=== PATIENT | female | born 1995 | race African-American/Black ===

== ENCOUNTER 2018-01-10 23:11 | Emergency (ER) | payer OTHER, SELFPAY ==
[2018-01-10] MEDS ORDERED: Acetaminophen 500 MG TAB ONE (23:22)
[2018-01-10 23:51] LABS: BHCG - Serum Negative (NEGATIVE); Pregs Control Background? CLEAR/WHITE (CLR/WHITE); Pregs Control Bar Appear? YES (CONTROL BAR)
[2018-01-11 00:12] LABS: Hemoglobin 10.6 g/dL (12.0-16.0); Mean Corpuscular HGB CONC 33.5 g/dL (32.0-36.0); Mean Corpuscular Hemoglobin 29.9 pg (27.0-31.0); Mean Corpuscular Volume 89.3 fL (78.0-98.0); Mean Platelet Volume 8.1 fL (7.4-10.4); Platelet Count 176 thou/uL (130-400); RBC Distribution Width 14.2 % (11.5-14.5); Red Blood Cell (RBC) Count 3.52 mill/uL (4.20-5.40); White Blood Cell (WBC) Count 6.6 thou/uL (4.8-10.8)
[2018-01-11 00:13] LABS: ALT (SGPT) 10 U/L (8-55); AST (SGOT) 14 U/L (5-34); Albumin 4.3 g/dL (3.5-5.0); Alkaline Phosphatase 71 U/L (40-150); Anion Gap 11 mmol/L (10-20); BUN (Urea Nitrogen) 6 mg/dL (7.0-18.7); Bilirubin, Total 0.2 mg/dL (0.2-1.2); Calc. Creatinine Clearance 0 mL/min (70-130); Calcium 9.5 mg/dL (7.8-10.44); Carbon Dioxide 24 mmol/L (22-29); Chloride 104 mmol/L (98-107); Estimated GFR-MDRD Greater than 90; Globulin 5.5 g/dL (2.4-3.5); Glucose 105 mg/dL (70-105); Potassium 3.4 mmol/L (3.5-5.1); Protein, Total 9.8 g/dL (6.0-8.3); Sodium 136 mmol/L (136-145)
[2018-01-11 00:33] LABS: Band 9 % (5-11); Eosinophils 1 % (0-10); Lymphocytes 19 % (21-51); MDiff Complete? YES; Monocytes 10 % (0-10); Neutrophil 61 % (42-75)
[2018-01-11 01:06] LABS: Bilirubin Negative (Negative); Blood, Urine Small (Negative); Clarity CLOUDY (Clear); Glucose, Urine (Dipstick) Negative (Negative); Leukocyte Large (Negative); Nitrite Negative (Negative); Protein, Urine (Dipstick) 30 mg/dL (Neg-Trace); Urobilinogen 0.2 mg/dL (0.2-1.0); pH, Urine 7.5 (5.0-9.0)
[2018-01-11] MEDS ORDERED: cefTRIAXone\\ROCEPHIN 1 GM VIAL ONE (01:06)
[2018-01-11 01:09] LABS: Bacteria/HPF 3+ HPF (None Seen); Hyaline Casts/LPF 0-3 HYALINE CAST LPF (0-3 Hyaline); Pathc Cast-AUWi Flag 0.14 (0-2.49); RBC/HPF 21-50 HPF (0-3); Squamous Epithelial 0-3 HPF (0-3)
--- NOTE | 2018-01-11 08:24 | RAD ---
SINGLE VIEW OF THE CHEST: COMPARISON: None. HISTORY: Abdominal pain for 2 days and hematuria; chest pain. FINDINGS: Single view of the chest shows a normal sized cardiomediastinal silhouette. There is no evidence of c onsolidation, mass, or pleural effusion. The bones are unremarkable. IMPRESSION: No evidence of acute cardiopulmonary disease. POS: [facility]
--- NOTE | 2018-01-11 08:33 | CT ---
PRELIMINARY REPORT/[facility]/EMERGENTY AFTER-HOURS PROCEDURE CT Abdomen and Pelvis Without Intravenous Contrast CLINICAL HISTORY: 22 years old, female; Pain; Abdominal pain; Flank; Right; Patient HX: Right sided flank/abdominal sari n, blood in urine, fever, chills, no n/v. TECHNIQUE: Axial computed tomography images of the abdomen and pelvis without intravenous contrast. Coronal reformatted images were created and reviewed. COMPARISON: No relevant prior studies available. FINDINGS: Lung bases: Normal. No mass. No consolidation. ABDOMEN: Liver: Normal. Gallbladder and bile ducts: Normal. Pancreas: Normal. Spleen: Normal. Adrenals: Normal. Kidneys and ureters: Mild right hydronephrosis, without definite obstructive etiology identified. Stomach and bowel: Normal. PELVIS: Appendix: Appendix is normal. Bladder: Normal. Reproductive: Normal as visualized. ABDOMEN and PELVIS: Intraperitoneal space: Small amount of pelvic free fluid, likely physiologic. No free air. Bones/joints: Minimal levoscoliosis of the lumbar spine. No acute fracture. No dislocation. Soft tissues: Normal. Vasculature: Normal. No abdominal aortic aneurysm. Lymph nodes: Normal. IMPRESSION: 1. Mild right hydronephrosis, without definite obstructive etiology identified. Findings may be secon nazia to recently passed calculus or occult obstruction. 2. Incidental/non-acute findings are described above. Thank you for allowing us to participate in the care of your patient. Dictated and Authenticated by: Jack Berrios MD 01/11/2018 12:37 AM Central Time ([place] & [place]) FINAL REPORT EMERGENT AFTER HOURS CT RENAL STONE PROTOCOL CT ABDOMEN AND PELVIS WITHOUT CONTRAST: IMPRESSION: Agree with the preliminary interpretation given by [facility] that there is no evidence for urinary tract ca lculi. Minimal nonspecific prominence of the right renal collecting system is likely physiologic. B ilateral L5 pars defects are demonstrated with associated spondylolisthesis. Correlation with radiog raphs recommended. POS: [facility]
== END 2018-01-11 02:50 | disposition home or self-care (01) ==
LOC: ERS 23:11
DX: N12 Tubulo-interstitial nephritis, not specified as acute or chronic (principal)
CPT/HCPCS: 36415; 71045; 74176; 80053; 81003; 81015; 83605; 83690; 84703; 85025; 87040; 87077; 87086; 87186; 96361; 96365; 96368; J0696; J1956

== ENCOUNTER 2018-05-10 21:33 | Emergency (ER) | payer SELFPAY ==
[2018-05-10 23:12] LABS: #Eosinphils 0.1 thou/uL (0.0-0.7); #Monocytes 0.3 thou/uL (0.11-0.59); #Neutrophils 2.1 thou/uL (1.40-6.50); %Eosinophils 2.3 % (0.0-10.0); %Lymphocytes 28.4 % (21.0-51.0); %Monocytes 7.9 % (0.0-10.0); %Neutrophils 60.5 % (42.0-75.0); Hemoglobin 9.4 g/dL (12.0-16.0); Mean Corpuscular HGB CONC 31.5 g/dL (32.0-36.0); Mean Corpuscular Hemoglobin 27.2 pg (27.0-31.0); Mean Corpuscular Volume 86.3 fL (78.0-98.0); Mean Platelet Volume 9.2 fL (7.4-10.4); Platelet Count 171 thou/uL (130-400); Red Blood Cell (RBC) Count 3.46 mill/uL (4.20-5.40); White Blood Cell (WBC) Count 3.4 thou/uL (4.8-10.8)
[2018-05-10 23:17] LABS: BHCG - Serum Negative (NEGATIVE); Pregs Control Background? CLEAR/WHITE (CLR/WHITE); Pregs Control Bar Appear? YES (CONTROL BAR)
[2018-05-10 23:25] LABS: ALT (SGPT) 11 U/L (8-55); AST (SGOT) 19 U/L (5-34); Albumin 3.3 g/dL (3.5-5.0); Alkaline Phosphatase 62 U/L (40-150); Anion Gap 6 mmol/L (10-20); BUN (Urea Nitrogen) 9 mg/dL (7.0-18.7); Bilirubin, Total 0.2 mg/dL (0.2-1.2); Calc. Creatinine Clearance 0 mL/min (70-130); Calcium 8.4 mg/dL (7.8-10.44); Carbon Dioxide 28 mmol/L (22-29); Chloride 107 mmol/L (98-107); Estimated GFR-MDRD Greater than 90; Globulin 5.2 g/dL (2.4-3.5); Glucose 125 mg/dL (70-105); Protein, Total 8.5 g/dL (6.0-8.3); Sodium 138 mmol/L (136-145)
[2018-05-10] MEDS ORDERED: Potassium Bicarbonate/Cit Ac 25 MEQ TAB ONE (23:45)
[2018-05-11 00:28] LABS: Bilirubin Negative (Negative); Blood, Urine Negative (Negative); Clarity CLOUDY (Clear); Glucose, Urine (Dipstick) Negative (Negative); Leukocyte Negative (Negative); Nitrite Negative (Negative); Protein, Urine (Dipstick) 300 mg/dL (Neg-Trace); Specific Gravity, Urine 1.027 (1.002-1.036); pH, Urine 6.5 (5.0-9.0)
[2018-05-11 00:31] LABS: Bacteria/HPF Rare-Few HPF (None Seen); RBC/HPF 0-3 HPF (0-3); Squamous Epithelial 21-50 HPF (0-3)
[2018-05-11 00:35] LABS: Pathc Cast-AUWi Flag 2.61 (0-2.49)
[2018-05-11 00:50] LABS: Hyaline Casts/LPF 0-3 HYALINE CAST LPF (0-3 Hyaline); Other Casts/LPF None Seen LPF (0-3 Hyaline); Renal Epithelial None Seen HPF (0-3); Transitional Epithelial NONE SEEN HPF (0-3); Yeast-All Forms None Seen HPF (None Seen)
== END 2018-05-11 01:35 | disposition home or self-care (01) ==
LOC: ERS 21:33
DX: E87.6 Hypokalemia (principal); R42 Dizziness and giddiness
CPT/HCPCS: 36415; 80053; 81003; 81015; 84703; 85025; 93005

== ENCOUNTER 2018-06-27 13:33 | Inpatient (IN) | payer SELFPAY ==
[2018-06-27 16:04] VITALS: BMI 26.2
[2018-06-27] MEDS ORDERED: Acetaminophen 650 MG Suppository PR PRN (16:31)
[2018-06-27] MEDS ORDERED: Guaifenesin DM 100-10/5 ML UDCUP PO PRN (16:31)
[2018-06-27] MEDS ORDERED: Senokot S 8.6-50 MG TAB PO PRN (16:31)
[2018-06-27] MEDS ORDERED: Ondansetron PF 4 MG/2 ML Vial IVP PRN (16:31)
[2018-06-27] MEDS ORDERED: Ondansetron ODT 4 MG TAB PO PRN (16:31)
[2018-06-27 17:44] LABS: Iron 24 ug/dL (50-170); Iron Binding Capacity, Total 158 mcg/dL (265-497)
[2018-06-27 17:45] LABS: ALT (SGPT) Less than 7 U/L (8-55); AST (SGOT) 18 U/L (5-34); Albumin 2.1 g/dL (3.5-5.0); Alkaline Phosphatase 57 U/L (40-150); Anion Gap 8 mmol/L (10-20); BUN (Urea Nitrogen) 13 mg/dL (7.0-18.7); Bilirubin, Total Less than 0.2 mg/dL (0.2-1.2); Calc. Creatinine Clearance 74 mL/min (70-130); Calcium 7.5 mg/dL (7.8-10.44); Carbon Dioxide 20 mmol/L (22-29); Chloride 112 mmol/L (98-107); Estimated GFR-MDRD 71; Globulin 5.2 g/dL (2.4-3.5); Glucose 75 mg/dL (70-105); Iron 23 ug/dL (50-170); Iron Binding Capacity, Total 168 mcg/dL (265-497); Potassium 3.7 mmol/L (3.5-5.1); Protein, Total 7.3 g/dL (6.0-8.3); Sodium 136 mmol/L (136-145)
[2018-06-27 18:53] LABS: Bilirubin Negative (Negative); Blood, Urine Large (Negative); Clarity CLEAR (Clear); Glucose, Urine (Dipstick) Negative (Negative); Leukocyte Negative (Negative); Nitrite Negative (Negative); Protein, Urine (Dipstick) 300 mg/dL (Neg-Trace); Urobilinogen 0.2 mg/dL (0.2-1.0)
[2018-06-27 19:00] LABS: Bacteria/HPF Rare-Few HPF (None Seen); Hyaline Casts/LPF 0-3 HYALINE CAST LPF (0-3 Hyaline); Pathc Cast-AUWi Flag 0.29 (0-2.49); RBC/HPF 21-50 HPF (0-3)
[2018-06-27 19:05] LABS: Specific Gravity, Urine 1.046 (1.002-1.036)
[2018-06-27] MEDS: Famotidine 20 MG TAB PO SCH (20:40)
--- NOTE | 2018-06-27 20:51 | HP ---
PRIMARY CARE PHYSICIAN: Curt Armstrong DO, MS CHIEF COMPLAINT: Fevers and facial swelling. HISTORY OF PRESENT ILLNESS: This is a 22-year-old female whose only past medical history is delivery of her only in 2017, who was in her normal state of health until a little over a month ago. At that time, she developed sore throat, fevers, aching all over. She was seen in one of the freestanding emergency rooms. There, she had a flu swab that was positive for the flu and also a strep swab that was positive for strep. She is allergic to amoxicillin, so she was given a Z-Agus along with Tamiflu. The patient reports the sore throat went away , however, other symptoms did not completely resolve. She has had fevers intermittently ever since up to 101 in the last couple of days. She has had fatigue, some intermittent aching in her joints. She also has had some shortness of breath when she lies down flat or with exertion, and she has been having to use two or three pillows at night to keep herself propped up so she can breathe. She has also noticed some swelling of her face and a little bit of swelling of her feet at one point, but those resolved, and she has had intermittent nausea and vomiting though it is not a consistent symptom. The patient went into [facility] Room. There, she was noted to have cardiomegaly and some pleural effusions on her chest x-ray. She also had an elevated D-dimer, so CT angio was done. CT angio showed cardiomegaly, small pericardial effusion, mild anasarca, and small bilateral pleural effusions. There was also some bilateral ground- glass appearance consistent with some mild edema and some bilateral axillary adenopathy. The patient also was noted to have a lot of protein in her urine and creatinine is mildly elevated at 1.4. Urine microscopy was not done. Her white blood cell count was suppressed to 3.5 and her hemoglobin was low at 9.1, hematocrit of 28.3, normal platelets. She had negative troponins at that time as well. The patient had tachycardia in the emergency room. She was given a couple of liters of fluid and then transferred here. Here, she has remained with some mild tachycardia in the low 100s and she has been afebrile here as well. PAST MEDICAL HISTORY: None. PAST SURGICAL HISTORY: None. OBSTETRICAL HISTORY: G1, P1, with spontaneous vaginal delivery at term and with negative hepatitis and HIV testing at that time. She did have some recurrent Trichomonas during the . SOCIAL HISTORY: The patient denies tobacco, alcohol, or illicit drug use. No recent travel. No history of camping. No tick bites. FAMILY HISTORY: Father has had end-stage renal disease, on dialysis for the last 20 years. Also has a history of hypertension, but no history of autoimmune diseases or diabetes. Maternal grandmother and grandfather, both had diabetes. ALLERGIES: AMOXICILLIN. CURRENT MEDICATIONS: Intermittent Tylenol and then the Z-Agus and Tamiflu last month. REVIEW OF SYSTEMS: CONSTITUTIONAL: See HPI. EYES: No double vision or blurred vision. ENT: No current congestion, drainage, or sore throat. CARDIOVASCULAR: No chest pain. No palpitations or racing heart. She does have orthopnea and dyspnea on exertion. PULMONARY: She has rare cough. She did not have much cough with her previous sore throat and infections either and no shortness of breath at rest, no wheezing. No chest tightness. GASTROINTESTINAL: Intermittent nausea and vomiting and she has some abdominal pain with vomiting, but otherwise it is not hurting at other times. No diarrhea or constipation. GENITOURINARY: No dysuria or hematuria. She has not noticed any darkening of her urine or any foamy urine. MUSCULOSKELETAL: No specific areas of arthralgias. She does have some generalized aching that comes and goes. SKIN: No rashes or other lesions that she has noticed. NEUROLOGIC: No numbness, tingling, or focal weakness. PHYSICAL EXAMINATION: VITAL SIGNS: Blood pressure 148/97, pulse 110, temperature 97.7, respirations 16, O2 saturation 100% on room air. GENERAL: This is a well-developed, well-nourished female, in no acute distress. HEENT: Pupils are equal, round, and reactive to light. Oropharynx is clear without lesions, erythema, or exudate. NECK: Supple. No lymphadenopathy. No thyroid nodules or enlargement. No JVD. HEART: Regular rhythm. Mild tachycardia. No murmurs. LUNGS: The patient has some mild crackles in bilateral bases, otherwise good air movement. No increased work of breathing. ABDOMEN: Soft, nontender to palpation. Normoactive bowel sounds. No hepatosplenomegaly or other masses. EXTREMITIES: No clubbing, cyanosis, or edema. Good peripheral pulses. SKIN: No rashes or other lesions noted. No sandpaper rash. No rash to her face or cheeks. NEUROLOGIC: Intact strength and sensation in all extremities. No facial droop. PSYCHIATRIC: Alert and oriented x3. Normal mood and affect. LABORATORY DATA: See HPI. IMAGING: EKG done at the outside emergency room was not sent over, but the report in their summary mentions normal sinus rhythm, normal HI intervals, normal ST segments and T-waves. No significant abnormalities except for the sinus tachycardia. ASSESSMENT: 1. Dyspnea on exertion with pleural effusions, pericardial effusion, and cardiomegaly. This is concerning for most likely a rheumatologic source. Given her other symptoms, I think lupus is high in the differential, and we are sending the antinuclear antibodies at this time. I am going to get an echocardiogram and have Cardiology see the patient as well. We will check a brain natriuretic peptide at this time also. 2. Acute renal failure, mild, associated with severe proteinuria and blood on the dipstick done at the outside emergency room. No microscopy was done. We will do a urine with microscopy here to look for red cells or red cell casts. We will also check a 24-hour urine protein. We will have Nephrology see the patient. She may eventually need a biopsy as this is very likely lupus affecting both the heart and the kidneys. Some sort of poststreptococcal glomerulonephritis is also on the differential. We will go ahead and re-swab her throat as well now to see if the strep was cleared with the azithromycin. If it is still present, she may benefit from a course of erythromycin. 3. Tachycardia, likely secondary to #1. 4. Hypertension, mild. We will monitor. 5. Leukopenia with anemia as well. Again, points to a likely diagnosis of lupus. We will go ahead and get iron studies to see if she is iron deficient and needs supplementation. 6. Gastrointestinal prophylaxis. We will put the patient on Pepcid while in the hospital. 7. Deep venous thrombosis prophylaxis. Given proteinuria and her anasarca on the CT, it is possible that she has had a drop in her protein levels, enough to call as a hypercoagulable state. We will go ahead and put her on Lovenox while in the hospital even though she is pretty ambulatory. We will try and have her ambulate regularly to prevent deep venous thrombosis. 8. Code status. The patient is full code. Job ID: [id number] MTDD
--- NOTE | 2018-06-28 00:04 | CON ---
DATE OF CONSULTATION: REASON FOR CONSULTATION: Elevated creatinine and proteinuria. HISTORY OF PRESENT ILLNESS: This is a very pleasant 22-year-old female with a baseline creatinine of 0.6 in April which increased to 1.1. The patient was also noted to have proteinuria, anemia, and pancytopenia. The patient also has had proteinuria for 2 months. The patient has noted a rash and some joint stiffness at times. The patient denies any nausea, vomiting, or chest pain. PAST MEDICAL HISTORY: Significant for dizziness, history of strep throat. Denies other illnesses like hypertension. SOCIAL HISTORY: No alcohol or drug use. FAMILY HISTORY: Positive for ESRD. Father was on dialysis at age 24. ALLERGIES: REVIEWED. HOME MEDICATIONS: List reviewed. REVIEW OF SYSTEMS: A 15-point review of system was performed, negative except for what was noted above. NECK: No swelling or lumps. NOSE: No epistaxis or discharge. EYES: No diplopia or pain. MUSCULOSKELETAL: No joint pain. NEUROPSYCHIATIC SYSTEMS: No suicidal ideation. No ideation. SKIN: Denies any rash or ulcer. CONSTITUTIONAL: No fever or chills. PHYSICAL EXAMINATION: GENERAL: The patient is awake and alert. VITAL SIGNS: Afebrile. Pulse 75, breathing 16, blood pressure was 148/97. GENERAL APPEARANCE AND MENTAL STATUS: Fair. HEAD/NECK: Normocephalic. Atraumatic. EYES: EOMI. No deformity. EARS: Clear. No ulcers. NOSE: Intact. No lesions. MOUTH: Clear. No discharge. THROAT: Clear. No exudate. LUNGS: Clear. No crackles. CARDIAC: S1, S2. No rub. ABDOMEN: Benign. Bowel sounds positive. GENITALIA/RECTUM: [place] absent. BACK/EXTREMITIES: Edema 0+. NEUROLOGICAL: Alert and motor intact. LABORATORY DATA: Reviewed stage. ASSESSMENT: 1. Stage 2 chronic kidney disease with acute kidney injury in the setting of proteinuria, pancytopenia, rash, and arthritic symptoms. We will recommend a kidney biopsy. We will also order lupus panel which has been done and we will recommend kidney biopsy. 2. Hypertension. I would recommend low-dose J LUIS inhibitor. I would avoid NSAIDs. 3. Anemia. Workup is pending. 4. Metabolic acidosis. Medication based on GFR are appropriate at this time. I would avoid enoxaparin. Job ID: [id number]
[2018-06-28] MEDS: Famotidine 20 MG TAB PO SCH ×2 (08:52→21:06)
[2018-06-28] MEDS ORDERED: Enoxaparin Sodium 40 MG/0.4 ML SYRINGE SC SCH (09:00)
--- NOTE | 2018-06-28 09:16 | PDOC.PN ---
- Subjective Encounter Start Date: 06/28/18 Encounter Start Time: 11:40 Subjective: Patient with unchanged symptoms overnight. Refusing any further -: needle sticks or blood draws. No high fevers overnight. - Objective Resuscitation Status - Order Detail: 06/27/18 16:31 Resuscitation Status Routine Resuscitation Status: FULL: Full Resuscitation MAR Reviewed: Yes Vital Signs & Weight: Vital Signs (12 hours) Temp Pulse Resp BP Pulse Ox 06/28/18 08:52 99 06/28/18 07:38 98.6 F 110 H 16 131/92 H 99 06/28/18 03:15 99.1 F 116 H 18 129/83 96 Weight Weight 137 lb 8 oz Result Diagrams: 06/28/18 11:30 06/28/18 10:50 Phys Exam - Physical Examination Constitutional: NAD HEENT: moist MMs Respiratory: no wheezing, no rhonchi mild basilar rales Cardiovascular: no significant murmur mild tachycardia Gastrointestinal: soft, non-tender, positive bowel sounds facial edema only Neurological: non-focal, moves all 4 limbs Psychiatric: normal affect, A&O x 3 Dx/Plan (1) Nephrotic range proteinuria Code(s): R80.9 - PROTEINURIA, UNSPECIFIED Status: Acute Comment: protein/ creatinine ratio >5000 mg/g, serum albumin quite low, suspect Lupus, serologies pending (2) Acute renal failure Status: Acute (3) Acute CHF (congestive heart failure) Code(s): I50.9 - HEART FAILURE, UNSPECIFIED Status: Acute Qualifiers: Heart failure type: unspecified Qualified Code(s): I50.9 - Heart failure, unspecified Comment: ECHO pending, cardiology consulted (4) Hypertension Code(s): I10 - ESSENTIAL (PRIMARY) HYPERTENSION Status: Acute Qualifiers: Hypertension type: renovascular hypertension Qualified Code(s): I15.0 - Renovascular hypertension Comment: starting low dose J LUIS-I per Dr. Wisdom's recommendations (5) Anemia Code(s): D64.9 - ANEMIA, UNSPECIFIED Status: Acute Comment: both iron and TIBC low, Ferritin normal, likely combination of chronic disease (Lupus?) and iron deficiency. Will start iron supplementation (6) Hypoalbuminemia Code(s): E88.09 - OTH DISORDERS OF PLASMA-PROTEIN METABOLISM, NEC Status: Acute Comment: due to renal losses - Plan cont current plan of care, DVT proph w/heparin Renal biopsy if patient will consent today. -: Awaiting cardiology recs. * . - Discharge Day Encounter end time: 11:50
[2018-06-28] MEDS ORDERED: Lisinopril 5 MG TAB PO SCH (09:30)
[2018-06-28 11:09] LABS: Hemoglobin 9.1 g/dL (12.0-16.0); Mean Corpuscular HGB CONC 30.3 g/dL (32.0-36.0); Mean Corpuscular Hemoglobin 26.9 pg (27.0-31.0); Mean Corpuscular Volume 88.7 fL (78.0-98.0); Mean Platelet Volume 10.3 fL (7.4-10.4); Platelet Count 161 thou/uL (130-400); RBC Distribution Width 17.1 % (11.5-14.5); Red Blood Cell (RBC) Count 3.39 mill/uL (4.20-5.40); White Blood Cell (WBC) Count 3.3 thou/uL (4.8-10.8)
[2018-06-28 11:18] LABS: Anion Gap 10 mmol/L (10-20); BUN (Urea Nitrogen) 10 mg/dL (7.0-18.7); Calc. Creatinine Clearance 75 mL/min (70-130); Calcium 7.6 mg/dL (7.8-10.44); Carbon Dioxide 19 mmol/L (22-29); Chloride 113 mmol/L (98-107); Estimated GFR-MDRD 71; Glucose 100 mg/dL (70-105); Potassium 3.7 mmol/L (3.5-5.1); Sodium 138 mmol/L (136-145)
[2018-06-28 11:34] LABS: Band 7 % (5-11); Lymphocytes 48 % (21-51); MDiff Complete? YES; Monocytes 3 % (0-10); Neutrophil 42 % (42-75); Platelet Morphology Comment Appears Adequate; Polychromasia SLIGHT = 2-3 cells (100X) (0-2/hpf)
[2018-06-28 11:42] LABS: PTT 38.5 SEC (22.9-36.1); Prothrombin Time 13.6 SEC (12.0-14.7)
[2018-06-28 11:53] LABS: Hemoglobin 8.8 g/dL (12.0-16.0); Mean Corpuscular HGB CONC 30.1 g/dL (32.0-36.0); Mean Corpuscular Hemoglobin 26.1 pg (27.0-31.0); Mean Corpuscular Volume 86.7 fL (78.0-98.0); Mean Platelet Volume 10.5 fL (7.4-10.4); Platelet Count 161 thou/uL (130-400); Red Blood Cell (RBC) Count 3.37 mill/uL (4.20-5.40); White Blood Cell (WBC) Count 3.2 thou/uL (4.8-10.8)
[2018-06-28 12:06] LABS: Band 3 % (5-11); Eosinophils 2 % (0-10); Lymphocytes 43 % (21-51); MDiff Complete? YES; Monocytes 4 % (0-10); Neutrophil 47 % (42-75); Platelet Morphology Comment Appears Adequate; Polychromasia SLIGHT = 2-3 cells (100X) (0-2/hpf); Reactive Lymphocytes 1 % (0-10)
--- NOTE | 2018-06-28 12:17 | PRG ---
DATE OF SERVICE: 06/28/2018 SUBJECTIVE: A 22-year-old female being seen for acute kidney injury with rising creatinine and nephrotic range proteinuria. The patient denies any nausea, vomiting, or chest pain. OBJECTIVE: See above. Awake, alert, in no acute distress. VITAL SIGNS: Afebrile. Pulse breathing 16, blood pressure 131/92. GENERAL APPEARANCE AND MENTAL STATUS: Fair. HEAD/NECK: Normocephalic. Atraumatic. EYES: EOMI. No deformity. EARS: Clear. No ulcers. NOSE: Intact. No lesions. MOUTH: Clear. No discharge. THROAT: Clear. No exudate. LUNGS: Clear. No crackles. CARDIAC: S1, S2. No rub. ABDOMEN: Benign. Bowel sounds positive. GENITALIA/RECTUM: [place] absent. BACK/EXTREMITIES: Edema 0+. NEUROLOGICAL: Alert and motor intact. SKIN: LYMPHATICS: LABORATORY DATA: Labs show hemoglobin 8.8. Creatinine is 1.1. ASSESSMENT AND PLAN: 1. Acute kidney injury on chronic kidney disease with nephrotic range proteinuria, would recommend kidney biopsy. Risks versus benefits were discussed. 2. Pancytopenia. 3. Metabolic acidosis due to renal failure. The patient has lost more than 40% to 50% of renal function. Renal biopsy would be indicated to evaluate the etiology of this hematuria. 4. Proteinuria. Would recommend Lipitor low dose. Job ID: [id number]
[2018-06-28] MEDS ORDERED: Midazolam HCl 2 mg/2 ml Vial ONE (14:57)
[2018-06-28] MEDS ORDERED: Fentanyl 100 MCG/2 ML VIAL ONE (14:57)
[2018-06-28] MEDS ORDERED: Heparin 5,000 UNITS/ML VIAL SC SCH (15:00)
[2018-06-28 15:33] LABS: BHCG - Serum Negative (NEGATIVE); Pregs Control Background? CLEAR/WHITE (CLR/WHITE); Pregs Control Bar Appear? YES (CONTROL BAR)
[2018-06-28] MEDS: Ferrous Sulfate 325 MG TAB PO SCH (17:06)
[2018-06-28] MEDS ORDERED: Furosemide 20 MG/2 ML VIAL SLOW IVP SCH (18:45)
--- NOTE | 2018-06-28 19:17 | CT ---
CT GUIDED PERCUTANEOUS RANDOM RIGHT RENAL BIOPSY: Date: 06/28/18 HISTORY: Patient with proteinuria. TECHNIQUE: The procedure, including risks and complications, were explained to the patient and informed consent was obtained. The patient was placed on the CT scan table in the prone position. Limited noncontraste d CT scan was obtained through the level of the kidneys with grid localizers in place. An area overlying the inferior pole of the left kidney was marked, and the area was meticulously prep ped and draped in the usual sterile fashion. Conscious sedation was performed with the intravenous administration of 1 mg of Versed and 50 mcg Fen tanyl. The intended puncture site was meticulously prepped and draped in the usual sterile fashion. S kin and subcutaneous tissues were infiltrated with buffered 1% lidocaine for local anesthesia. Small skin incision was made. A 17 gauge guide needle was advanced, followed by three axial [address] images. This was repea kerri until the tip of the needle was placed within the peripheral posterolateral aspect of the inferio r pole of the left kidney. A total of three 18 gauge core needle biopsy specimens were obtained utili zing coaxial technique. One additional biopsy was requested by the pathologist for a total of four co re needle biopsy specimens. [place] were visualized on the provided specimens as noted by the patho logist. Inner stylette was removed, and the needle was removed. Hemostasis was achieved with direct pressure for approximately 8-[address] images obtained through the level of biopsy site dem onstrating no evidence of a hematoma or interval development of free fluid compared to precontrast im aging. A dry, sterile dressing was placed. The patient tolerated the procedure well and without immediate co mplication. The patient was transported to her room in stable condition with vital signs remaining st able throughout the procedure, as well as post procedure. IMPRESSION: 1. Technically successful CT guided percutaneous random left renal biopsy. Pathology is currently pe nding. 2. Findings suggesting anasarca. 3. Peristent nephrogram phase of enhancement involving each kidney. Patient reportedly had CT scan o f the abdomen 1 day ago at an outside institution. POS: [facility]
[2018-06-28] MEDS: Acetaminophen 325 MG TAB PO PRN (21:06)
--- NOTE | 2018-06-29 00:52 | CON ---
DATE OF CONSULTATION: HISTORY: Belinda Lane is a 22-year-old black female without any previous serious illnesses. She has been having upper respiratory infections and had a positive strep screen as well as positive for flu. She was given Tamiflu and Z- Agus since she is allergic to amoxicillin. She had fevers intermittently up to 101, she also had some joint aching. She began to have orthopnea and PND and did notice increased dyspnea. She went back to [facility] and chest x-ray was obtained which revealed cardiomegaly as well as pleural effusions. She had elevated D- dimer and CT angiogram showed cardiomegaly, small bilateral pleural effusions. She also been noted to have proteinuria. She was tachycardic in the emergency room and given 2 L of fluid and then transferred here. PAST MEDICAL HISTORY: She denies any history of hypertension, diabetes, or hypercholesterolemia. MEDICATIONS: None. ALLERGIES: AMOXICILLIN. OPERATIONS: None. SOCIAL HISTORY: She does not smoke or drink. REVIEW OF SYSTEMS: A 12-point review of systems is otherwise unremarkable. PHYSICAL EXAMINATION: VITAL SIGNS: Blood pressure 138/93, pulse of 125, sinus rhythm on the monitor. HEENT: PERRL. NECK: Supple. CHEST: Reveals crackles at the bases. CARDIOVASCULAR EXAMINATION: S1, S2 normal without any S4. There was a very loud S3. ABDOMEN: Normal bowel sounds without tenderness or organomegaly. EXTREMITIES: Revealed trace pretibial edema. NEUROLOGICAL: Grossly intact. SKIN: Warm and dry. LABORATORY DATA: Revealed there is not an EKG on the chart. Hemoglobin 8.8, hematocrit 29.2, white count 3200, and platelets 161,000. Sodium 138, potassium 3.7, chloride 113, carbon dioxide 19, BUN 10, creatinine 1.16. Iron 24, TIBC 158. BNP 581.4. Serum is negative. Echocardiogram revealed moderate pericardial effusion without evidence of tamponade, severe left ventricular dysfunction with ejection fraction of 20% to 25%, moderate mitral regurgitation, mild tricuspid regurgitation. IMPRESSION: 1. 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 2. Mild renal failure with severe proteinuria. 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 3. Hypertension, which she states she has never had in the past. PLAN: I would discontinue the heparin with her pericardial effusion over concern of possibly this developing into a hemopericardium. I feel that she needs to be diuresed and placed on carvedilol. Lisinopril has already been started. She does not have insurance. I doubt we will be able to afford Entresto. She will be treated also with intravenous diuretics. Job ID: [id number] MTDD
[2018-06-29] MEDS: Acetaminophen 325 MG TAB PO PRN ×3 (03:55→14:48)
[2018-06-29] MEDS: Furosemide 20 MG/2 ML VIAL SLOW IVP SCH ×2 (06:19→14:39)
[2018-06-29] MEDS: Carvedilol 6.25 MG TAB PO SCH ×2 (09:17→17:37)
[2018-06-29] MEDS: Lisinopril 2.5 MG TAB PO SCH (09:19)
--- NOTE | 2018-06-29 09:19 | PRG ---
DATE OF SERVICE: 06/29/2018 SUBJECTIVE: This 22-year-old female being seen for acute kidney injury. The patient denies nausea, vomiting, or chest pain. OBJECTIVE: CONSTITUTIONAL: The patient is awake and alert. VITAL SIGNS: Afebrile, pulse 102, breathing 16, blood pressure 123/96. GENERAL APPEARANCE AND MENTAL STATUS: Fair. HEAD/NECK: Normocephalic. Atraumatic. EYES: EOMI. No deformity. EARS: Clear. No ulcers. NOSE: Intact. No lesions. MOUTH: Clear. No discharge. THROAT: Clear. No exudate. LUNGS: Clear. No crackles. CARDIAC: S1, S2. No rub. ABDOMEN: Benign. Bowel sounds positive. GENITALIA/RECTUM: [place] absent. BACK/EXTREMITIES: Edema 0+. NEUROLOGICAL: Alert and motor intact. SKIN: LYMPHATICS: LABORATORY DATA: Labs are pending. ASSESSMENT AND PLAN: 1. Acute kidney injury with chronic kidney disease and massive proteinuria. Renal function is pending. Renal biopsy is pending. 2. Proteinuria. Renal biopsy pending. Lupus like symptoms. The patient will need a Rheumatology followup. 3. Congestive heart failure. Overall prognosis is poor. Job ID: [id number]
[2018-06-29] MEDS: Famotidine 20 MG TAB PO SCH ×2 (09:20→21:08)
[2018-06-29] MEDS: Ferrous Sulfate 325 MG TAB PO SCH ×2 (09:20→17:37)
[2018-06-29 13:00] LABS: Mean Corpuscular HGB CONC 30.9 g/dL (32.0-36.0); Mean Corpuscular Hemoglobin 27.1 pg (27.0-31.0); Mean Corpuscular Volume 87.7 fL (78.0-98.0); Mean Platelet Volume 10.6 fL (7.4-10.4); Platelet Count 149 thou/uL (130-400); Red Blood Cell (RBC) Count 3.32 mill/uL (4.20-5.40)
[2018-06-29 13:05] LABS: Anion Gap 10 mmol/L (10-20); BUN (Urea Nitrogen) 12 mg/dL (7.0-18.7); Calc. Creatinine Clearance 56 mL/min (70-130); Calcium 7.7 mg/dL (7.8-10.44); Carbon Dioxide 19 mmol/L (22-29); Chloride 113 mmol/L (98-107); Estimated GFR-MDRD 50; Glucose 83 mg/dL (70-105); Potassium 3.9 mmol/L (3.5-5.1); Sodium 138 mmol/L (136-145)
[2018-06-29 13:23] LABS: Anisocytosis SLIGHT = 6-15 cells (100X) (0-5/hpf); Band 9 % (5-11); Hypochromia SLIGHT = 6-15 cells (100X) (0-5/hpf); Lymphocytes 16 % (21-51); MDiff Complete? YES; Monocytes 3 % (0-10); Neutrophil 72 % (42-75); Platelet Morphology Comment Appears Adequate
--- NOTE | 2018-06-29 15:15 | PDOC.PN ---
- Subjective Encounter Start Date: 06/29/18 Encounter Start Time: 08:00 Pt seen for followup re: acute systolic CHF. Says she feels better. No fevers. - Objective Resuscitation Status - Order Detail: 06/27/18 16:31 Resuscitation Status Routine Resuscitation Status: FULL: Full Resuscitation MAR Reviewed: Yes Vital Signs & Weight: Vital Signs (12 hours) Temp Pulse Resp BP Pulse Ox 06/29/18 12:00 98.2 F 98 15 114/84 99 06/29/18 09:13 97.7 F 109 H 18 126/96 H 97 06/29/18 04:28 98.8 F 102 H 16 123/96 H 99 Weight Weight 137 lb 8 oz I&O: 06/28/18 06/29/18 06/30/18 06:59 06:59 06:59 Intake Total 1400 Output Total 300 Balance 1100 Result Diagrams: 06/29/18 12:17 06/29/18 12:17 EKG Reviewed by me: Yes (Tele: sinus tachycardia) Phys Exam - Physical Examination Constitutional: NAD HEENT: moist MMs, sclera anicteric, oral pharynx no lesions, 2+ tonsils puffy eyelids Neck: no nodes, no JVD, supple, full ROM Sukhwinder crackles Cardiovascular: no rub S1, S2, reg, tachy Gastrointestinal: soft, non-tender, no distention, positive bowel sounds Musculoskeletal: edema present Neurological: moves all 4 limbs Psychiatric: normal affect, A&O x 3 Dx/Plan (1) Acute CHF (congestive heart failure) Code(s): I50.9 - HEART FAILURE, UNSPECIFIED Status: Acute Qualifiers: Heart failure type: systolic Qualified Code(s): I50.21 - Acute systolic ( congestive) heart failure Comment: LVEF 20-25%, likely secondary to viral myocarditis. Continue furosemide. ACC/AHA Class C, NYHA Class 3 (2) AJ (acute kidney injury) Code(s): N17.9 - ACUTE KIDNEY FAILURE, UNSPECIFIED Status: Acute Comment: Pt had renal biopsy, path report pending (3) Nephrotic range proteinuria Code(s): R80.9 - PROTEINURIA, UNSPECIFIED Status: Acute Comment: workup in progress (4) Hypertension Code(s): I10 - ESSENTIAL (PRIMARY) HYPERTENSION Status: Chronic Qualifiers: Hypertension type: renovascular hypertension Qualified Code(s): I15.0 - Renovascular hypertension Comment: controlled - Plan * . Review of Systems - Review of Systems Constitutional: negative: fever, chills, sweats, weakness, malaise Respiratory: negative: Cough, Shortness of Breath, SOB with Excertion, Pleuritic Pain, Wheezing Cardiovascular: negative: chest pain, palpitations, orthopnea, paroxysmal nocturnal dyspnea, edema, light headedness Gastrointestinal: negative: Nausea, Vomiting, Abdominal Pain, Diarrhea, Constipation, Melena, Hematochezia Genitourinary: negative: Dysuria, Frequency, Incontinence, Hematuria, Retention - Medications/Allergies Allergies/Adverse Reactions: Allergies Allergy/AdvReac Type Severity Reaction Status Date / Time amoxicillin Allergy Rash Verified 06/27/18 16:04 Medications: Current Medications Acetaminophen (Tylenol) 650 mg PO Q4H PRN PRN Reason: Headache/Fever/Mild Pain (1-3) Last Admin: 06/29/18 14:48 Dose: 650 mg Acetaminophen (Tylenol) 650 mg [place] Q4H PRN PRN Reason: Headache/Fever/Mild Pain (1-3) Carvedilol (Coreg) 6.25 mg PO BID-[facility] Last Admin: 06/29/18 09:17 Dose: 6.25 mg Famotidine (Pepcid) 20 mg PO BID [facility] Last Admin: 06/29/18 09:20 Dose: 20 mg Ferrous Sulfate (Feosol) 325 mg PO BID-[facility] Last Admin: 06/29/18 09:20 Dose: 325 mg Furosemide (Lasix) 20 mg SLOW IVP 0600,1400 [facility] Last Admin: 06/29/18 14:39 Dose: 20 mg Guaifenesin/Dextromethorphan (Robitussin Dm) 15 ml PO Q4H PRN PRN Reason: Cough Lisinopril (Zestril) 2.5 mg PO DAILY [facility] Last Admin: 06/29/18 09:19 Dose: 2.5 mg Ondansetron HCl (Zofran Odt) 4 mg PO Q6H PRN PRN Reason: Nausea/Vomiting Last Admin: 06/28/18 21:06 Dose: 4 mg Ondansetron HCl (Zofran) 4 mg IVP Q6H PRN PRN Reason: Nausea/Vomiting Senna/Docusate Sodium (Senokot S) 2 tab PO BID PRN PRN Reason: Constipation Sodium Chloride (Flush - Normal Saline) 10 ml IVF Q12HR [facility] Last Admin: 06/29/18 09:20 Dose: 10 ml Sodium Chloride (Flush - Normal Saline) 10 ml IVF PRN PRN PRN Reason: Saline Flush
[2018-06-29 18:51] LABS: ANA Symphony (Qualitative) POSITIVE (Negative); ANA Symphony (Quantitative) Greater than 32.0 Ratio (< 0.7 Negative); CENP IgG Antibody 1.9 EliAU/mL (<7 Negative); Jo-1 IgG Antibody 0.8 EliAU/mL (<7 Negative); RNP70 IgG Antibody 0.5 EliAU/mL (<7 Negative); SSA/Ro IgG Antibody Greater than 240.0 EliAU/mL (<7 Negative); SSB/La IgG Antibody Greater than 320.0 EliAU/mL (<7 Negative); Scleroderma-70 IgG Antibody 3.4 EliAU/mL (<7 Negative); Smith D IgG Antibody 4.2 EliAU/mL (<7 Negative); dsDNA IgG Antibody Greater than 379.0 IU/mL (<10 Negative)
[2018-06-29] MEDS ORDERED: Melatonin 3 MG TAB PO SCH (23:15)
[2018-06-30] MEDS: Furosemide 20 MG/2 ML VIAL SLOW IVP SCH ×2 (06:02→13:56)
[2018-06-30] MEDS: Ferrous Sulfate 325 MG TAB PO SCH ×2 (09:14→17:02)
[2018-06-30] MEDS: Carvedilol 6.25 MG TAB PO SCH ×2 (09:14→17:02)
[2018-06-30] MEDS: Lisinopril 2.5 MG TAB PO SCH (09:15)
[2018-06-30] MEDS: Famotidine 20 MG TAB PO SCH ×2 (09:15→20:36)
--- NOTE | 2018-06-30 11:20 | PDOC.PN ---
- Subjective Encounter Start Date: 06/30/18 Encounter Start Time: 07:40 Pt seen for followup re: acute systolic CHF. No new complaints, slept well. - Objective Resuscitation Status - Order Detail: 06/27/18 16:31 Resuscitation Status Routine Resuscitation Status: FULL: Full Resuscitation MAR Reviewed: Yes Vital Signs & Weight: Vital Signs (12 hours) Temp Pulse Resp BP Pulse Ox 06/30/18 09:15 96 06/30/18 09:12 99.1 F 96 20 120/89 95 06/30/18 09:00 99.1 F 96 20 120/89 95 06/30/18 04:00 98.1 F 93 18 122/67 98 Weight Weight 137 lb 8 oz I&O: 06/29/18 06/30/18 07/01/18 06:59 06:59 06:59 Intake Total 1400 1170 Output Total 300 Balance 1100 1170 Result Diagrams: 06/29/18 12:17 06/29/18 12:17 EKG Reviewed by me: Yes (Tele: NSR) Phys Exam - Physical Examination Constitutional: NAD HEENT: moist MMs Neck: supple Respiratory: clear to auscultation bilateral Cardiovascular: RRR Gastrointestinal: soft Neurological: moves all 4 limbs Psychiatric: normal affect Dx/Plan (1) Acute CHF (congestive heart failure) Code(s): I50.9 - HEART FAILURE, UNSPECIFIED Status: Acute Qualifiers: Heart failure type: systolic Qualified Code(s): I50.21 - Acute systolic ( congestive) heart failure Comment: likely secondary to viral myocarditis. Continue furosemide. ACC/AHA Class C, NYHA Class 3 (2) AJ (acute kidney injury) Code(s): N17.9 - ACUTE KIDNEY FAILURE, UNSPECIFIED Status: Acute Comment: s/ p renal biopsy, path report pending (3) Nephrotic range proteinuria Code(s): R80.9 - PROTEINURIA, UNSPECIFIED Status: Acute Comment: workup in progress (4) Hypertension Code(s): I10 - ESSENTIAL (PRIMARY) HYPERTENSION Status: Chronic Qualifiers: Hypertension type: renovascular hypertension Qualified Code(s): I15.0 - Renovascular hypertension Comment: controlled - Plan * . Review of Systems - Review of Systems Constitutional: negative: fever, chills, sweats, weakness, malaise Cardiovascular: negative: chest pain, palpitations, orthopnea, paroxysmal nocturnal dyspnea, edema, light headedness - Medications/Allergies Allergies/Adverse Reactions: Allergies Allergy/AdvReac Type Severity Reaction Status Date / Time amoxicillin Allergy Rash Verified 06/27/18 16:04 Medications: Current Medications Acetaminophen (Tylenol) 650 mg PO Q4H PRN PRN Reason: Headache/Fever/Mild Pain (1-3) Last Admin: 06/29/18 14:48 Dose: 650 mg Acetaminophen (Tylenol) 650 mg IN Q4H PRN PRN Reason: Headache/Fever/Mild Pain (1-3) Carvedilol (Coreg) 6.25 mg PO BID-[facility] Last Admin: 06/30/18 09:14 Dose: 6.25 mg Famotidine (Pepcid) 20 mg PO BID [facility] Last Admin: 06/30/18 09:15 Dose: 20 mg [facility] ([facility]) [facility] Last Admin: 06/30/18 09:14 Dose: 325 mg Furosemide (Lasix) 20 mg SLOW IVP 0600,1400 [facility] Last Admin: 06/30/18 06:02 Dose: 20 mg Guaifenesin/Dextromethorphan (Robitussin Dm) 15 ml PO Q4H PRN PRN Reason: Cough Lisinopril (Zestril) 2.5 mg PO DAILY [facility] Last Admin: 06/30/18 09:15 Dose: 2.5 mg Ondansetron HCl (Zofran Odt) 4 mg PO Q6H PRN PRN Reason: Nausea/Vomiting Last Admin: 06/28/18 21:06 Dose: 4 mg Ondansetron HCl (Zofran) 4 mg IVP Q6H PRN PRN Reason: Nausea/Vomiting Senna/Docusate Sodium (Senokot S) 2 tab PO BID PRN PRN Reason: Constipation Sodium Chloride (Flush - Normal Saline) 10 ml IVF Q12HR [facility] Last Admin: 06/30/18 09:16 Dose: 10 ml Sodium Chloride (Flush - Normal Saline) 10 ml IVF PRN PRN PRN Reason: Saline Flush
[2018-06-30] MEDS ORDERED: Bacteriostatic Water 30 ML VIAL FS PRN (11:37)
[2018-06-30] MEDS ORDERED: methylPREDNISolone Sod Succ/PF 125 MG/2 ML VIAL IVP SCH (11:45)
[2018-06-30] MEDS: Acetaminophen 325 MG TAB PO PRN (12:41)
--- NOTE | 2018-06-30 12:49 | PRG ---
DATE OF SERVICE: 06/30/2018 SUBJECTIVE: A 22-year-old female being seen for acute kidney injury with rising creatinine. The patient complains of swelling and shortness of breath. OBJECTIVE: CONSTITUTIONAL: The patient is awake and alert, in no acute distress. VITAL SIGNS: Afebrile, pulse 96, breathing 16, blood pressure 120/89. GENERAL APPEARANCE AND MENTAL STATUS: Fair. HEAD/NECK: Normocephalic. Atraumatic. EYES: EOMI. No deformity. EARS: Clear. No ulcers. NOSE: Intact. No lesions. MOUTH: Clear. No discharge. THROAT: Clear. No exudate. LUNGS: Clear. No crackles. CARDIAC: S1, S2. No rub. ABDOMEN: Benign. Bowel sounds positive. GENITALIA/RECTUM: [place] absent. BACK/EXTREMITIES: Edema 0+. NEUROLOGICAL: Alert and motor intact. SKIN: LYMPHATICS: LABORATORY DATA: Labs are pending. Creatinine was increasing to 1.5 yesterday. ASSESSMENT AND RECOMMENDATION: 1. 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 We will start the patient on immunosuppressive with 500 mg of methylprednisolone. The side effects of this medicines were discussed with the patient and her mother, and the patient agreed. We are waiting for the final biopsy results on the patient. The patient is at increased risk for hypercoagulable status. 2. Congestive heart failure. 3. Anemia and pancytopenia. Overall prognosis is very poor. There is no urgent indication for dialysis. I have recommended the Rheumatology consultation and Pulmonary consultation as well. Job ID: [id number]
[2018-06-30 13:07] LABS: Hemoglobin 8.9 g/dL (12.0-16.0); Mean Corpuscular HGB CONC 31.4 g/dL (32.0-36.0); Mean Corpuscular Hemoglobin 27.5 pg (27.0-31.0); Mean Corpuscular Volume 87.5 fL (78.0-98.0); Mean Platelet Volume 11.1 fL (7.4-10.4); Platelet Count 146 thou/uL (130-400); Red Blood Cell (RBC) Count 3.23 mill/uL (4.20-5.40); White Blood Cell (WBC) Count 3.3 thou/uL (4.8-10.8)
[2018-06-30 13:25] LABS: Anion Gap 10 mmol/L (10-20); BUN (Urea Nitrogen) 14 mg/dL (7.0-18.7); Calc. Creatinine Clearance 47 mL/min (70-130); Calcium 7.7 mg/dL (7.8-10.44); Carbon Dioxide 18 mmol/L (22-29); Chloride 112 mmol/L (98-107); Estimated GFR-MDRD 41; Glucose 87 mg/dL (70-105); Sodium 136 mmol/L (136-145)
[2018-06-30 13:28] LABS: Anisocytosis SLIGHT = 6-15 cells (100X) (0-5/hpf); Band 9 % (5-11); Hypochromia SLIGHT = 6-15 cells (100X) (0-5/hpf); Lymphocytes 56 % (21-51); MDiff Complete? YES; Monocytes 4 % (0-10); Neutrophil 31 % (42-75); Platelet Morphology Comment Appears Adequate; Poikilocytosis SLIGHT = 6-15 cells (100X) (0-5/hpf)
--- NOTE | 2018-06-30 13:48 | RAD ---
2 VIEW CHEST: Date 06/30/18 INDICATION: Shortness of breath. FINDINGS: There is enlargement of the cardiac silhouette. Patchy bilateral perihilar opacities are present. The re are leads overlying the chest limiting detail. No significant effusion. IMPRESSION: 1. Enlarged cardiac silhouette. 2. Patchy bilateral perihilar opacities which may reflect edema versus atypical pneumonia. Recommend continued follow-up to confirm resolution. POS: LEYLAH
--- NOTE | 2018-06-30 15:43 | PDOC.CTH ---
Cardiology Progress Note - Subjective The pt seen and examined. No overnight events. No cardiac complaints. - Objective Vital Signs Temp Pulse Resp BP Pulse Ox 06/30/18 12:25 98.9 F 98 20 119/85 06/30/18 09:15 96 06/30/18 09:12 99.1 F 96 20 120/89 95 06/30/18 09:00 99.1 F 96 20 120/89 96 06/30/18 04:00 98.1 F 93 18 122/67 98 Weight 137 lb 8 oz 06/29/18 06/30/18 07/01/18 06:59 06:59 06:59 Intake Total 1400 1170 Output Total 300 Balance 1100 1170 - Physical Examination General/Neuro: alert & oriented x3 Neck: no JVD present Lungs: other: (diminished at bases) Heart: RRR Abdomen: soft Extremities: other: (No edema) - Telemetry Telemetry Rhythm: SR 90s - Labs Result Diagrams: 07/01/18 06:37 07/02/18 10:39 - Assessment/Plan 1. Acute on Chronic systolic HF with EF 20-25% - stable with RA; on Lasix 20mg IV BID, Coreg, and Lisinopril 2.5mg qd; 2. 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 HTN - stable 4. Anemia - unchanged 5. possible Lupus MAR reviewed Pt.klever and ely.by me.I agree with the A/P by the WEATHER OBSERVER. no cardiac complaints.Chest clear.RRR. Review of Systems - Review of Systems Constitutional: reports: no symptoms reported EENTM: reports: no symptoms reported Respiratory: reports: no symptoms reported Cardiac (ROS): reports: no symptoms reported ABD/GI: reports: no symptoms reported : reports: no symptoms reported Musculoskeletal: reports: no symptoms reported
--- NOTE | 2018-06-30 17:47 | CON ---
DATE OF CONSULTATION: HISTORY OF PRESENT ILLNESS: Belinda Lane is a very pleasant 22-year-old female. She says she has been feeling poorly since May. She thought she had a flu and strep throat back then and was treated for that, she said she never started feeling better. She presented 3 days ago with complaints of facial swelling and fever. She also reports three-pillow orthopnea, paroxysmal nocturnal dyspnea. I was consulted for shortness of breath. PAST MEDICAL HISTORY: Otherwise, unremarkable. FAMILY HISTORY: Negative for lung disease in early age. SOCIAL HISTORY: She is a nonsmoker, nondrinker, and nondrug user. FAMILY HISTORY: Her father has renal disease. There is no history of lung disease in early age. No history of vasculitis. ALLERGIES: SHE REPORTS PENICILLIN ALLERGY. MEDICATIONS: She is on no medications prior to this admission. REVIEW OF SYSTEMS: Otherwise negative. She has had no hemoptysis or hematuria. She denies joint pain. PHYSICAL EXAMINATION: VITAL SIGNS: She is afebrile. Heart rate is 98, respiratory rate 18, oximetry is 98% on room air, and blood pressure 116/72. HEENT: Pupils are equal. Sclerae are anicteric. NECK: Supple. No lymphadenopathy. LUNGS: Remarkable for fine crackles over lung bases. HEART: Regular rhythm. She has a loud summation gallop. She has no murmur. ABDOMEN: Soft and nontender. No masses are palpated. EXTREMITIES: Without clubbing, cyanosis, or edema. DIAGNOSTIC DATA: Chest radiograph shows no infiltrates, although, the size of her cardiac silhouette has increased since admission. LABORATORY DATA: White count 3.3, hemoglobin 8.9, platelets 146,000. PTT 38, pro-time is 13.6. Sodium 136, potassium 4, chloride 112, bicarb 18, BUN 10, creatinine 1.85, calcium 7.7. Iron is 24, TIBC is 158 consistent with chronic disease. test is negative. She has 300 mg/dL protein in her urine. She had a random urine protein of 623, urine creatinine of 114. Her TED was positive greater than 32.0. Her SSA IgG was greater than 240, SSB IgG was greater than 320. Her Roper IgG was 4.2, 73.4. Mbue-rzjlhs-ykrppqim DNA was greater than 379. Her anti-URNP IgG was 8. Anticentromere IgG was 1.9. As mentioned, her chest radiograph shows an increase in her cardiac silhouette size last film to this film, but no pulmonary edema. She is certainly at risk for thromboembolic disease, but at this point, my index suspicion for this is low. IMPRESSION: Lupus flare with lupus myocarditis, pericarditis (she has pericardial effusion) and double-stranded DNA and serologies strongly suggestive of lupus flare. She may have an early interstitial pneumonitis, but with her history of orthopnea, it is more likely related to her cardiomyopathy. I do think she needs to be treated as an acute lupus flare and Rheumatology input should be solicited, sometimes the stenocaptioner will do consultations over the phone. They do not come to the hospital very often. As I have explained to her it is imperative that she get plugged in with stenocaptioner that she will stick with. It is the length of her life clearly depends on this. I will be happy to follow with her at this point in time. I will think ventilation perfusion studies indicated. I will be happy to follow the other physicians caring for. 70 minute consult with 50% spent on unit coordinating care Job ID: [id number] [facility]
[2018-07-01] MEDS: Furosemide 20 MG/2 ML VIAL SLOW IVP SCH (06:20)
[2018-07-01 07:05] LABS: Anion Gap 13 mmol/L (10-20); BUN (Urea Nitrogen) 28 mg/dL (7.0-18.7); Calc. Creatinine Clearance 37 mL/min (70-130); Calcium 7.8 mg/dL (7.8-10.44); Carbon Dioxide 16 mmol/L (22-29); Chloride 112 mmol/L (98-107); Estimated GFR-MDRD 31; Glucose 124 mg/dL (70-105); Potassium 4.5 mmol/L (3.5-5.1); Sodium 136 mmol/L (136-145)
[2018-07-01 08:15] LABS: Band 4 % (5-11); Hemoglobin 9.3 g/dL (12.0-16.0); Lymphocytes 55 % (21-51); MDiff Complete? YES; Mean Corpuscular HGB CONC 31.3 g/dL (32.0-36.0); Mean Corpuscular Volume 86.4 fL (78.0-98.0); Mean Platelet Volume 10.9 fL (7.4-10.4); Neutrophil 41 % (42-75); Platelet Count 171 thou/uL (130-400); RBC Distribution Width 17.2 % (11.5-14.5); Red Blood Cell (RBC) Count 3.44 mill/uL (4.20-5.40)
[2018-07-01] MEDS: Famotidine 20 MG TAB PO SCH ×2 (09:19→20:42)
[2018-07-01] MEDS: Lisinopril 2.5 MG TAB PO SCH (09:19)
[2018-07-01] MEDS: Ferrous Sulfate 325 MG TAB PO SCH ×2 (09:19→17:35)
[2018-07-01] MEDS: Carvedilol 6.25 MG TAB PO SCH ×2 (09:20→17:35)
--- NOTE | 2018-07-01 12:34 | PDOC.PN ---
- Subjective Encounter Start Date: 07/01/18 Encounter Start Time: 07:40 Pt seen for followup re: acute systolic CHF. Feels better. - Objective Resuscitation Status - Order Detail: 06/27/18 16:31 Resuscitation Status Routine Resuscitation Status: FULL: Full Resuscitation Vital Signs & Weight: Vital Signs (12 hours) Temp Pulse Resp BP BP Pulse Ox 07/01/18 09:20 123/73 07/01/18 09:19 86 07/01/18 08:00 97.0 F L 86 18 123/73 96 07/01/18 04:00 98.1 F 87 14 124/87 96 Weight Weight 137 lb 8 oz I&O: 06/30/18 07/01/18 07/02/18 06:59 06:59 06:59 Intake Total 1170 1050 Output Total 80 Balance 1170 1050 -80 Result Diagrams: 07/01/18 06:37 07/01/18 06:37 Phys Exam - Physical Examination Constitutional: NAD HEENT: moist MMs Neck: supple Respiratory: clear to auscultation bilateral Cardiovascular: RRR Gastrointestinal: soft Musculoskeletal: edema present Neurological: moves all 4 limbs Psychiatric: normal affect Dx/Plan (1) Acute CHF (congestive heart failure) Code(s): I50.9 - HEART FAILURE, UNSPECIFIED Status: Acute Qualifiers: Heart failure type: systolic Qualified Code(s): I50.21 - Acute systolic ( congestive) heart failure Comment: Continue furosemide. (2) AJ (acute kidney injury) Code(s): N17.9 - ACUTE KIDNEY FAILURE, UNSPECIFIED Status: Acute Comment: s/ p renal biopsy, await path report. Pt has been started on steroids for probable lupus nephritis. (3) Nephrotic range proteinuria Code(s): R80.9 - PROTEINURIA, UNSPECIFIED Status: Acute Comment: workup in progress (4) Hypertension Code(s): I10 - ESSENTIAL (PRIMARY) HYPERTENSION Status: Chronic Qualifiers: Hypertension type: renovascular hypertension Qualified Code(s): I15.0 - Renovascular hypertension Comment: controlled - Plan * . Review of Systems - Review of Systems Respiratory: negative: Cough, Shortness of Breath, SOB with Excertion, Pleuritic Pain, Wheezing Cardiovascular: negative: chest pain, palpitations, orthopnea, paroxysmal nocturnal dyspnea, edema, light headedness - Medications/Allergies Allergies/Adverse Reactions: Allergies Allergy/AdvReac Type Severity Reaction Status Date / Time amoxicillin Allergy Rash Verified 06/27/18 16:04 Medications: Current Medications Acetaminophen (Tylenol) 650 mg PO Q4H PRN PRN Reason: Headache/Fever/Mild Pain (1-3) Last Admin: 06/30/18 12:41 Dose: 650 mg Acetaminophen (Tylenol) 650 mg [place] Q4H PRN PRN Reason: Headache/Fever/Mild Pain (1-3) Carvedilol (Coreg) 6.25 mg PO BID-[facility] Last Admin: 07/01/18 09:20 Dose: 6.25 mg Famotidine (Pepcid) 20 mg PO BID [facility] Last Admin: 07/01/18 09:19 Dose: 20 mg Ferrous Sulfate (Feosol) 325 mg PO BID-[facility] Last Admin: 07/01/18 09:19 Dose: 325 mg Guaifenesin/Dextromethorphan (Robitussin Dm) 15 ml PO Q4H PRN PRN Reason: Cough Hydralazine HCl (Apresoline) 10 mg PO TID [facility] Ondansetron HCl (Zofran Odt) 4 mg PO Q6H PRN PRN Reason: Nausea/Vomiting Last Admin: 06/28/18 21:06 Dose: 4 mg Ondansetron HCl (Zofran) 4 mg IVP Q6H PRN PRN Reason: Nausea/Vomiting Senna/Docusate Sodium (Senokot S) 2 tab PO BID PRN PRN Reason: Constipation Sodium Chloride (Flush - Normal Saline) 10 ml IVF Q12HR [facility] Last Admin: 07/01/18 09:20 Dose: 10 ml Sodium Chloride (Flush - Normal Saline) 10 ml IVF PRN PRN PRN Reason: Saline Flush Sterile Water (Bacteriostatic Water) 1 ml FS PRN PRN PRN Reason: RECONSTITUTION
[2018-07-01 12:35] LABS: Creatinine, Urine 119.31 mg/dL (47-110)
--- NOTE | 2018-07-01 13:38 | PRG ---
DATE OF SERVICE: 07/01/2018 SUBJECTIVE: A 22-year-old female being seen for acute kidney injury the patient denies any nausea, vomiting, or chest pain. OBJECTIVE: The patient is awake and alert. VITAL SIGNS: Afebrile, pulse 86, breathing 16, and blood pressure . GENERAL APPEARANCE AND MENTAL STATUS: Fair. HEAD/NECK: Normocephalic. Atraumatic. EYES: EOMI. No deformity. EARS: Clear. No ulcers. NOSE: Intact. No lesions. MOUTH: Clear. No discharge. THROAT: Clear. No exudate. LUNGS: Clear. No crackles. CARDIAC: S1, S2. No rub. ABDOMEN: Benign. Bowel sounds positive. GENITALIA/RECTUM: [place] absent. BACK/EXTREMITIES: Edema 0+. NEUROLOGICAL: Alert and motor intact. SKIN: LYMPHATICS: LABORATORY STUDIES: Labs shows hemoglobin 9.3, creatinine 2.8. ASSESSMENT AND PLAN: 1. Acute kidney injury with chronic kidney disease stage 3, progressive decline in GFR, most likely because of serologically markers positive for lupus. Continue Solu-Medrol till the biopsy results are back. 2. Hypertension, stable. 3. Anemia, stable. 4. Metabolic acidosis, start sodium bicarbonate 325 t.i.d. Job ID: [id number]
[2018-07-01] MEDS: Acetaminophen 325 MG TAB PO PRN (16:02)
[2018-07-01] MEDS: hydrALAZINE 25 MG TAB PO SCH ×2 (16:03→20:42)
[2018-07-01] MEDS: Sodium Bicarbonate Tab 325 MG TAB PO SCH ×2 (16:06→20:41)
--- NOTE | 2018-07-01 19:05 | PRG ---
DATE OF SERVICE: 07/01/2018 SUBJECTIVE: Belinda Lane says she is feeling better. She is actually completely flat in bed. She said she was comfortable when I made rounds today. OBJECTIVE: VITAL SIGNS: She is afebrile. Heart rate is 98, blood pressure 124 /85, respiratory rate 16, oximetry is 100%, and blood pressure 124/85. LUNGS: Clear. HEART: Regular rhythm. S1 and S2 slightly muffled, but do not seem less prominent than yesterday. She still has some summation gallop. ABDOMEN: Soft and nontender. EXTREMITIES: Without edema. LABORATORY DATA: C3 and C4 are low. Sedimentation rate was 118. 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 She continues on high-dose Medrol. She says she is feeling better. She needs to be monitored closely for interval development of early tamponade. She appears stable for now. She is also at risk for a renal vein thrombus and dvt. Job ID: [id number] [facility]
[2018-07-02] MEDS ORDERED: methylPREDNISolone Sod Succ/PF 125 MG/2 ML VIAL IVP SCH (09:00)
[2018-07-02] MEDS: hydrALAZINE 25 MG TAB PO SCH ×2 (09:10→16:45)
[2018-07-02] MEDS: Famotidine 20 MG TAB PO SCH ×2 (09:11→20:03)
[2018-07-02] MEDS: Carvedilol 6.25 MG TAB PO SCH ×2 (09:11→16:40)
[2018-07-02] MEDS: Acetaminophen 325 MG TAB PO PRN (09:11)
[2018-07-02] MEDS: Ferrous Sulfate 325 MG TAB PO SCH ×2 (09:12→16:40)
[2018-07-02] MEDS: Sodium Bicarbonate Tab 325 MG TAB PO SCH ×3 (09:19→20:02)
--- NOTE | 2018-07-02 11:02 | PRG ---
DATE OF SERVICE: 07/02/2018 SUBJECTIVE: Patient was seen and examined at bedside and overnight events noted. Patient denies any shortness of breath or chest pain or palpitation. No history of nausea or vomiting or diarrhea or fever or chills or cramps. OBJECTIVE: GENERAL: This is a well-built female, in no apparent distress. VITAL SIGNS: Temperature 98.0. Heart rate 87. Respiratory rate 20. Blood pressure 123/82. HEENT: Atraumatic, normocephalic. Oral mucosa is moist NECK: Supple. CARDIOVASCULAR: S1, S2 heard. Rate and rhythm regular. RESPIRATORY: Clear to auscultation. GASTROINTESTINAL: Abdomen is soft. MUSCULOSKELETAL: No tenderness. No edema. DERMATOLOGIC: No skin rash. NEUROLOGIC: Alert and awake and oriented X3. No focal neurologic deficits. Moving all the extremities. PSYCHIATRIC: Mood and affect normal. LABORATORY DATA: No labs done today. ASSESSMENT AND PLAN: 1. Acute kidney injury on chronic kidney disease, stage 3. Renal function getting worse. We will recheck labs today. Continue on Solu-Medrol. The patient is feeling better and a sign of possible lupus nephritis with proteinuria. Biopsy results are pending. 2. Hypertension. 3. Anemia. Plan is to continue on Solu-Medrol for now and the patient was counseled regarding mycophenolate and teratogenicity. The patient does have a kid just 1-year-old and not breast feeding. We will continue to follow benefits and risks, consult and the patient is high-risk for complications. Continue close monitoring. Job ID: [id number]
[2018-07-02 11:09] LABS: Anion Gap 12 mmol/L (10-20); BUN (Urea Nitrogen) 42 mg/dL (7.0-18.7); Calc. Creatinine Clearance 39 mL/min (70-130); Calcium 7.4 mg/dL (7.8-10.44); Carbon Dioxide 16 mmol/L (22-29); Chloride 112 mmol/L (98-107); Estimated GFR-MDRD 35; Glucose 104 mg/dL (70-105); Potassium 4.4 mmol/L (3.5-5.1); Sodium 136 mmol/L (136-145)
--- NOTE | 2018-07-02 11:11 | PRG ---
DATE OF SERVICE: 07/02/2018 SUBJECTIVE: Ms. Lane says she is stable. I have encouraged her to walk more today. OBJECTIVE: VITAL SIGNS: She is afebrile. Oximetry is 100% on room air. Heart rate is 93, respiratory rate is 16. LUNGS: Clear. HEART: She still has a summation gallop. ABDOMEN: Soft. LABORATORY DATA: There is no Chem-7 today. Her creatinine has gone from 1.16 to 2.37 yesterday. IMPRESSION: Lupus with multiple organ involvement. I would recommend Rheumatology consultation while she is an inpatient, so a plan of care as an outpatient can be developed. She will continue with high-dose IV steroids for now. Job ID: [id number]
[2018-07-02] MEDS ORDERED: hydrALAZINE 10 MG TAB PO SCH ×2 (16:15→21:00)
--- NOTE | 2018-07-02 16:18 | PDOC.PN ---
- Subjective Encounter Start Date: 07/02/18 Encounter Start Time: 16:17 Pt seen for followup re: lupus nephritis. feels well, no complaints. - Objective Resuscitation Status - Order Detail: 06/27/18 16:31 Resuscitation Status Routine Resuscitation Status: FULL: Full Resuscitation Vital Signs & Weight: Vital Signs (12 hours) Temp Pulse Resp BP Pulse Ox 07/02/18 11:16 98.3 F 87 18 121/78 96 07/02/18 08:00 97.2 F L 93 16 124/86 100 Weight Weight 130 lb 9 oz I&O: 07/01/18 07/02/18 07/03/18 06:59 06:59 06:59 Intake Total 1050 1260 Output Total 80 Balance 1050 1180 Result Diagrams: 07/01/18 06:37 07/02/18 10:39 Phys Exam - Physical Examination Constitutional: NAD HEENT: moist MMs Neck: supple Respiratory: clear to auscultation bilateral Cardiovascular: RRR Gastrointestinal: soft Neurological: moves all 4 limbs Psychiatric: normal affect Dx/Plan (1) 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 Had motorcycle police officer pased to discuss case, waiting for callback. (2) Acute CHF (congestive heart failure) Code(s): I50.9 - HEART FAILURE, UNSPECIFIED Status: Acute Qualifiers: Heart failure type: systolic Qualified Code(s): I50.21 - Acute systolic ( congestive) heart failure Comment: on furosemide. (3) AJ (acute kidney injury) Code(s): N17.9 - ACUTE KIDNEY FAILURE, UNSPECIFIED Status: Acute Comment: Secondary to lupus nephritis, started on steroids (4) Nephrotic range proteinuria Code(s): R80.9 - PROTEINURIA, UNSPECIFIED Status: Acute Comment: secondary to lupus nephritis (5) Hypertension Code(s): I10 - ESSENTIAL (PRIMARY) HYPERTENSION Status: Chronic Qualifiers: Hypertension type: renovascular hypertension Qualified Code(s): I15.0 - Renovascular hypertension Comment: controlled - Plan * . Review of Systems - Review of Systems Cardiovascular: negative: chest pain, palpitations, orthopnea, paroxysmal nocturnal dyspnea, edema, light headedness Gastrointestinal: negative: Nausea, Vomiting, Abdominal Pain, Diarrhea, Constipation, Melena, Hematochezia - Medications/Allergies Allergies/Adverse Reactions: Allergies Allergy/AdvReac Type Severity Reaction Status Date / Time amoxicillin Allergy Rash Verified 06/27/18 16:04 Medications: Current Medications Acetaminophen (Tylenol) 650 mg PO Q4H PRN PRN Reason: Headache/Fever/Mild Pain (1-3) Last Admin: 07/02/18 09:11 Dose: 650 mg Acetaminophen (Tylenol) 650 mg IA Q4H PRN PRN Reason: Headache/Fever/Mild Pain (1-3) Carvedilol (Coreg) 6.25 mg PO BID-[facility] Last Admin: 07/02/18 09:11 Dose: 6.25 mg Famotidine (Pepcid) 20 mg PO BID [facility] Last Admin: 07/02/18 09:11 Dose: 20 mg Ferrous Sulfate (Feosol) 325 mg PO BID-[facility] Last Admin: 07/02/18 09:12 Dose: 325 mg Guaifenesin/Dextromethorphan (Robitussin Dm) 15 ml PO Q4H PRN PRN Reason: Cough Hydralazine HCl (Apresoline) 10 mg PO TID [facility] Hydralazine HCl (Apresoline) 10 mg PO ONE [facility] Stop: 07/02/18 17:00 Methylprednisolone Sodium Succinate 500 mg/ Sodium Chloride 108 mls @ 216 mls/ hr IVPB DAILY [facility] Stop: 07/03/18 09:29 Last Admin: 07/02/18 09:10 Dose: 108 mls Ondansetron HCl (Zofran Odt) 4 mg PO Q6H PRN PRN Reason: Nausea/Vomiting Last Admin: 06/28/18 21:06 Dose: 4 mg Ondansetron HCl (Zofran) 4 mg IVP Q6H PRN PRN Reason: Nausea/Vomiting Senna/Docusate Sodium (Senokot S) 2 tab PO BID PRN PRN Reason: Constipation Sodium Bicarbonate (Bicarbonate, Sodium) 325 mg PO TID [facility] Last Admin: 07/02/18 16:08 Dose: 325 mg Sodium Chloride (Flush - Normal Saline) 10 ml IVF Q12HR [facility] Last Admin: 07/02/18 09:12 Dose: 10 ml Sodium Chloride (Flush - Normal Saline) 10 ml IVF PRN PRN PRN Reason: Saline Flush Sterile Water (Bacteriostatic Water) 1 ml FS PRN PRN PRN Reason: RECONSTITUTION
[2018-07-03 07:23] LABS: Anion Gap 12 mmol/L (10-20); BUN (Urea Nitrogen) 50 mg/dL (7.0-18.7); Calc. Creatinine Clearance 40 mL/min (70-130); Calcium 7.7 mg/dL (7.8-10.44); Carbon Dioxide 18 mmol/L (22-29); Chloride 111 mmol/L (98-107); Estimated GFR-MDRD 36; Glucose 125 mg/dL (70-105); Potassium 4.5 mmol/L (3.5-5.1); Sodium 136 mmol/L (136-145)
[2018-07-03] MEDS ORDERED: methylPREDNISolone Sod Succ 1,000 MG in Sodium Chloride 0.9% 250 ML 250 ML IVPB SCH (09:00)
[2018-07-03] MEDS: Ferrous Sulfate 325 MG TAB PO SCH ×2 (09:16→16:49)
[2018-07-03] MEDS: Famotidine 20 MG TAB PO SCH ×2 (09:16→20:57)
[2018-07-03] MEDS: Carvedilol 6.25 MG TAB PO SCH ×2 (09:16→16:49)
[2018-07-03] MEDS: Sodium Bicarbonate Tab 325 MG TAB PO SCH ×2 (09:17→16:48)
[2018-07-03] MEDS: hydrALAZINE 25 MG TAB PO SCH ×2 (09:17→20:57)
--- NOTE | 2018-07-03 13:25 | PDOC.PN ---
- Subjective Encounter Start Date: 07/03/18 Encounter Start Time: 08:00 Pt seen for followup re: lupus nephritis. Says she feels well. - Objective Resuscitation Status - Order Detail: 06/27/18 16:31 Resuscitation Status Routine Resuscitation Status: FULL: Full Resuscitation MAR Reviewed: Yes Vital Signs & Weight: Vital Signs (12 hours) Temp Pulse Resp BP Pulse Ox 07/03/18 11:08 97.5 F L 88 18 122/82 97 07/03/18 09:10 97.6 F 79 16 125/87 99 07/03/18 04:00 97.8 F 79 18 137/93 H 99 Weight Weight 131 lb 2 oz I&O: 07/02/18 07/03/18 07/04/18 06:59 06:59 06:59 Intake Total 1260 3800 Output Total 80 Balance 1180 3800 Result Diagrams: 07/01/18 06:37 07/03/18 06:56 EKG Reviewed by me: Yes (Tele: NSR) Phys Exam - Physical Examination Constitutional: NAD HEENT: moist MMs Neck: supple Respiratory: clear to auscultation bilateral Cardiovascular: RRR Gastrointestinal: soft Neurological: moves all 4 limbs Psychiatric: normal affect Dx/Plan (1) Lupus nephritis Code(s): M32.14 - GLOMERULAR DISEASE IN SYSTEMIC LUPUS ERYTHEMATOSUS Status: Acute Comment: Discussed with pharmacist per diem Dr Kennedy yesterday evening by phone. Advised to give Solumedrol 500 mg IV yesterday, 1000 mg IV today and start prednisone at 1mg/kg daily starting tomorrow. Advised to start mycophenalate 500 mg BID and gradually increase to 3000 mg per day as needed. Advised pt re: teratogenic potential. Also advised pt to not not get because it could be fatal, per rhrumatology. Ob/Gyne consulted to discuss re: contraception. (2) Acute CHF (congestive heart failure) Code(s): I50.9 - HEART FAILURE, UNSPECIFIED Status: Acute Qualifiers: Heart failure type: systolic Qualified Code(s): I50.21 - Acute systolic ( congestive) heart failure Comment: continue furosemide. (3) AJ (acute kidney injury) Code(s): N17.9 - ACUTE KIDNEY FAILURE, UNSPECIFIED Status: Acute Comment: Secondary to lupus nephritis, started on steroids, creatinine improved to 2.09 (4) Nephrotic range proteinuria Code(s): R80.9 - PROTEINURIA, UNSPECIFIED Status: Acute Comment: secondary to lupus nephritis (5) Hypertension Code(s): I10 - ESSENTIAL (PRIMARY) HYPERTENSION Status: Chronic Qualifiers: Hypertension type: renovascular hypertension Qualified Code(s): I15.0 - Renovascular hypertension Comment: controlled - Plan * . Review of Systems - Review of Systems Cardiovascular: negative: chest pain, palpitations, orthopnea, paroxysmal nocturnal dyspnea, edema, light headedness Gastrointestinal: negative: Nausea, Vomiting, Abdominal Pain, Diarrhea, Constipation, Melena, Hematochezia - Medications/Allergies Allergies/Adverse Reactions: Allergies Allergy/AdvReac Type Severity Reaction Status Date / Time amoxicillin Allergy Rash Verified 06/27/18 16:04 Medications: Current Medications Acetaminophen (Tylenol) 650 mg PO Q4H PRN PRN Reason: Headache/Fever/Mild Pain (1-3) Last Admin: 07/02/18 09:11 Dose: 650 mg Acetaminophen (Tylenol) 650 mg NC Q4H PRN PRN Reason: Headache/Fever/Mild Pain (1-3) Carvedilol (Coreg) 6.25 mg PO BID[facility] Last Admin: 07/03/18 09:16 Dose: 6.25 mg Famotidine (Pepcid) 20 mg PO BID [facility] Last Admin: 07/03/18 09:16 Dose: 20 mg Ferrous Sulfate (Feosol) 325 mg PO BID-[facility] Last Admin: 07/03/18 09:16 Dose: 325 mg Guaifenesin/Dextromethorphan (Robitussin Dm) 15 ml PO Q4H PRN PRN Reason: Cough Hydralazine HCl (Apresoline) 25 mg PO BID [facility] Last Admin: 07/03/18 09:17 Dose: 25 mg Ondansetron HCl (Zofran Odt) 4 mg PO Q6H PRN PRN Reason: Nausea/Vomiting Last Admin: 06/28/18 21:06 Dose: 4 mg Ondansetron HCl (Zofran) 4 mg IVP Q6H PRN PRN Reason: Nausea/Vomiting Prednisone (Prednisone) 60 mg PO [facility] Senna/Docusate Sodium (Senokot S) 2 tab PO BID PRN PRN Reason: Constipation Last Admin: 07/03/18 09:21 Dose: 2 tab Sodium Bicarbonate (Bicarbonate, Sodium) 325 mg PO TID [facility] Last Admin: 07/03/18 09:17 Dose: 325 mg Sodium Chloride (Flush - Normal Saline) 10 ml IVF Q12HR [facility] Last Admin: 07/03/18 09:21 Dose: 10 ml Sodium Chloride (Flush - Normal Saline) 10 ml IVF PRN PRN PRN Reason: Saline Flush Sterile Water (Bacteriostatic Water) 1 ml FS PRN PRN PRN Reason: RECONSTITUTION
--- NOTE | 2018-07-03 14:23 | CON ---
DATE OF CONSULTATION: 07/03/2018 REGULAR PHYSICIAN: [facility]. CONSULTING PHYSICIAN: Jeet Fuller MD REASON FOR CONSULTATION: Contraception discussion. HISTORY OF PRESENT ILLNESS: Ms. Velasquez is a 22-year-old black, G1, P1-0-0-1 with last menstrual period reported as 06/29/2018, who was admitted with symptoms of malaise and during the workup has been found to have a lupus flare. I was consulted to discuss contraception with her as she proceeds through the therapy. She will require the potential for chemotherapeutic agents that would be teratogenic to any . At the present time, she has no TRAILER TECHNICIAN complaints. PAST OBSTETRICAL HISTORY: Includes a vaginal delivery in September 2016 of an uncomplicated term . She attended [facility] and was a patient of Dr. Armstrong at that time. PAST MEDICAL HISTORY: None. PAST SURGICAL HISTORY: None. CURRENT MEDICATIONS: Include: 1. Coreg. 2. Pepcid. 3. Feosol. 4. Methylprednisone. ALLERGIES: AMOXICILLIN, WHICH SHE STATES GAVE HER FACIAL SWELLING A CHILD. SOCIAL HISTORY: She denies tobacco, alcohol, or illicit drug use. FAMILY HISTORY: Remarkable for renal disease, but she denies any COLLAR STARCHER related illnesses. PHYSICAL EXAMINATION: VITAL SIGNS: This morning, her vital signs are blood pressure 137/93, pulse 79, respirations 18, with O2 saturation on room air of 99%, her temperature is 97.8. GENERAL: She is pleasant. She is not ill appearing. She is in no acute distress. ABDOMEN: Not performed. PELVIC: Not performed. ASSESSMENT: Systemic lupus erythematosus with new-onset flare. PLAN: The nature of contraception was discussed with her in detail. Various forms of contraception including barrier, hormonal, and long-acting reversible contraception were all discussed with her in detail. Due to the necessity of contraception at this time, I have suggested that she go back to [facility] and visit with Dr. Armstrong regarding the possibility of an IUD. She voices understanding of the above. Job ID: [id number] [facility]
--- NOTE | 2018-07-03 18:03 | PRG ---
DATE OF SERVICE: 07/03/2018 SUBJECTIVE: Patient was seen and examined at bedside and overnight events noted. Patient denies any shortness of breath or chest pain or palpitation. No history of nausea or vomiting or diarrhea or fever or chills or cramps. OBJECTIVE: GENERAL: This is a well-built female in no apparent distress. VITAL SIGNS: Temperature 97.8. Heart rate 74. Respiratory rate 18. Blood pressure 137/64. HEENT: Atraumatic, normocephalic. Oral mucosa is moist NECK: Supple. CARDIOVASCULAR: S1, S2 heard. Rate and rhythm regular. RESPIRATORY: Clear to auscultation. GASTROINTESTINAL: Abdomen is soft. MUSCULOSKELETAL: No tenderness. No edema. DERMATOLOGIC: No skin rash. NEUROLOGIC: Alert and awake and oriented X3. No focal neurologic deficits. Moving all the extremities. PSYCHIATRIC: Mood and affect normal. LABORATORY DATA: Potassium is 4.5, BUN is 50, and creatinine is 2.09. Kidney biopsy showed diffuse lupus nephritis class 4A with global glomerulosclerosis of , [id number] activity, and no evidence of chronicity. ASSESSMENT AND PLAN: 1. Acute kidney injury on chronic kidney disease, most likely from lupus flare. Continue intravenous steroids and switch to oral prednisone. We will add CellCept. The patient was given counseling from VOICE WRITING REPORTER also regarding using contraception and avoiding while taking CellCept. 2. Hypertension, stable. 3. Anemia. Monitor hemoglobin. 4. Edema, controlled. 5. Lupus nephritis, biopsy proven. Plan is to slowly taper prednisone and increase CellCept dose. We will have Case Management consult for medication assistance for CellCept and the patient to follow up as outpatient with Rheumatology and Nephrology with Dr. Wisdom. The patient was counseled on complications of lupus and also the complications of medications. We will follow. The patient is high risk for complications. Job ID: [id number]
--- NOTE | 2018-07-03 18:54 | PRG ---
DATE OF SERVICE: 07/03/2018 SUBJECTIVE: Belinda is doing well. She says she is feeling better. She wants to go home. She denies shortness of breath. OBJECTIVE: VITAL SIGNS: She is afebrile, heart rate 74, respiratory rate 16, oximetry is 100% on room air, and blood pressure 127/64. LUNGS: Clear. She still has a gallop. ABDOMEN: Soft and nontender. EXTREMITIES: Without edema, LABORATORY DATA: White count is 2.0, hemoglobin 9.3, and platelets 171. Creatinine is 2.09, which is improved from 2.12 yesterday, 2.37 the day before. Her renal biopsy done on the shows diffuse lupus nephritis class 4, global glomerulosclerosis. IMPRESSION: Lupus with pericardial, myocardial, and kidney involvement. PLAN: She really needs close outpatient Rheumatology followup and would be probably ideal if she established contact with cooling room attendant while she is in the hospital or shortly after discharge. We will continue to follow. Job ID: [id number]
[2018-07-03] MEDS: Mycophenolate 250 MG CAP PO SCH (20:57)
[2018-07-04] MEDS: Famotidine 20 MG TAB PO SCH (08:29)
[2018-07-04] MEDS: Ferrous Sulfate 325 MG TAB PO SCH (08:29)
[2018-07-04] MEDS: hydrALAZINE 25 MG TAB PO SCH (08:29)
[2018-07-04] MEDS: Carvedilol 6.25 MG TAB PO SCH (08:29)
[2018-07-04] MEDS: Mycophenolate 250 MG CAP PO SCH (08:30)
[2018-07-04] MEDS ORDERED: predniSONE 20 MG TAB PO SCH (09:00)
[2018-07-04 10:09] LABS: Anion Gap 12 mmol/L (10-20); BUN (Urea Nitrogen) 55 mg/dL (7.0-18.7); Calc. Creatinine Clearance 40 mL/min (70-130); Calcium 7.6 mg/dL (7.8-10.44); Carbon Dioxide 16 mmol/L (22-29); Chloride 111 mmol/L (98-107); Estimated GFR-MDRD 36; Glucose 151 mg/dL (70-105); Sodium 135 mmol/L (136-145)
[2018-07-04 11:29] VITALS: BP 118/75; TEMP 97.7
--- NOTE | 2018-07-04 14:50 | DIS ---
DATE OF ADMISSION: 06/27/2018 DATE OF DISCHARGE: 07/04/2018 PRIMARY CARE PROVIDER: Lalita Donovan NP DISCHARGE DIAGNOSES: 1. Lupus nephritis. 2. Acute systolic congestive heart failure. 3. Pericardial effusion. 4. Acute kidney injury. CONDITION OF PATIENT ON THE DAY OF DISCHARGE: Stable. I assessed Ms. Lane on the day of discharge. She denies any chest pain or shortness of breath. Vital signs are stable. S1 and S2 are heard, regular. Lungs are clear to auscultation bilaterally. CONSULTATIONS DURING THIS HOSPITALIZATION: 1. Nephrology, Dr. Solorio. 2. Cardiology Dr. Fuentes. 3. Pulmonology, Dr. Morales. 4. Obstetrics and Gynecology, Dr. Fuller. DISCHARGE MEDICATIONS: 1. Coreg 6.25 mg 2 times a day. 2. Ferrous sulfate 325 mg 2 times a day. 3. Hydralazine 25 mg 2 times a day. 4. Mycophenolate 500 mg 2 times a day for 1 week, then 1000 mg 2 times a day, to be increased on a weekly basis depending on clinical response. 5. Prednisone 60 mg daily for 2 weeks, then to be tapered by 10 mg daily every two weeks. HOSPITAL COURSE: Ms. Lane is a pleasant 22-year-old lady who was admitted to [facility] on June 27, 2018, for shortness of breath with pleural effusions, pericardial effusion, and cardiomegaly. Please refer to Dr. De Paz's history and physical note dated June 27, 2018, for further details. She had positive TED, positive SSA IgG antibody, positive SSB IgG antibody, positive anti-double stranded DNA IgG antibody, positive anti-U1RNP, immunoglobulin G, and low levels of complements C3 and C4. She also underwent renal biopsy. Pathology report was positive for lupus nephritis. She was started on steroids. I discussed her case over the telephone with Rheumatology service. They recommended that she be continued on steroids and started on mycophenolate. They also recommended that she should not get . These were conveyed to the patient. She was also seen by OB/Gyne Service to discuss contraception methods. She had 2D echocardiogram, which showed moderate pericardial effusion, no evidence of tamponade. Left ventricular ejection fraction was visually estimated at 20% to 25%. She was seen by Cardiology Service. She was started on beta sharon. She could not be started on J LUIS inhibitor or ARB secondary to the contraindication of renal failure. Cardiology Service also recommended LifeVest, but the patient declined LifeVest. She is advised to follow up with Rheumatology Service as outpatient. She has an appointment set up with Rheumatology Clinic on July 19, 2018, at 2:30 p.m. She is also advised to follow up with Dr. Solorio in 1 week time. She has received prescription for steroids and mycophenolate for 2 weeks and one month for the other medications. The importance of maintaining followup appointments and medication compliance was emphasized to her. She expressed understanding. Many thanks for allowing me to participate in your patient's care. Please feel free to contact me with any questions or concerns. DISCHARGE DESTINATION: Home. TOTAL AMOUNT OF TIME SPENT COORDINATING THIS DISCHARGE: 32 minutes. Job ID: [id number]
--- NOTE | 2018-07-05 06:37 | PRG ---
DATE OF SERVICE: 07/04/2018 SUBJECTIVE: Patient was seen and examined at bedside and overnight events noted. Patient denies any shortness of breath or chest pain or palpitation. No history of nausea or vomiting or diarrhea or fever or chills or cramps. OBJECTIVE: GENERAL: This is a well-built female, in no apparent distress. VITAL SIGNS: Temperature . Heart rate 74. Respiratory rate 16. Blood pressure 118/75. HEENT: Atraumatic, normocephalic. Oral mucosa is moist. NECK: Supple. CARDIOVASCULAR: S1, S2 heard. Rate and rhythm regular. RESPIRATORY: Clear to auscultation. GASTROINTESTINAL: Abdomen is soft. MUSCULOSKELETAL: No tenderness. No edema. DERMATOLOGIC: No skin rash. NEUROLOGIC: Alert and awake and oriented X3. No focal neurologic deficits. Moving all the extremities. PSYCHIATRIC: Mood and affect normal. LABORATORY DATA: Potassium is 4.0, BUN is 55, and creatinine is 2.06. ASSESSMENT AND PLAN: 1. Acute kidney injury on chronic kidney disease, stage 3. Renal function seems to be stable. Okay to discharge home. 2. Lupus nephritis, started on prednisone and CellCept. Plan is to slowly increase the CellCept dose and decrease the prednisone and the patient needs close followup with Rheumatology as outpatient. Patient understands. 3. Hypertension. 4. Anemia. 5. . 6. Acidosis, monitor. The patient needs to follow with Dr. Wisdom in 1 week and Rheumatology in 1 to 2 weeks and continue CellCept, medication assistance needs to be arranged for CellCept. Job ID: [id number]
== END 2018-07-04 14:57 | disposition home or self-care (01) | DRG 545 ==
LOC: 2NO 15:11
PROVIDERS: ADMIT Internal Medicine; ATTEND Internal Medicine
PROC: 0TB13ZX Excision of Left Kidney, Percutaneous Approach, Diagnostic (ICD-10-PCS; principal; 2018-06-28)
DX: M32.14 Glomerular disease in systemic lupus erythematosus (principal); I50.21 Acute systolic (congestive) heart failure; N17.9 Acute kidney failure, unspecified; E87.2 Acidosis; M32.12 Pericarditis in systemic lupus erythematosus; M32.13 Lung involvement in systemic lupus erythematosus; M32.19 Other organ or system involvement in systemic lupus erythematosus; I15.0 Renovascular hypertension; D63.8 Anemia in other chronic diseases classified elsewhere; Z88.0 Allergy status to penicillin
CPT/HCPCS: 36415; 50200; 71046; 77012; 80048; 80053; 81001; 82570; 82728; 83540; 83550; 83880; 84156; 84703; 85025; 85610; 85652; 85730; 86038; 86060; 86160; 86225; 86235; 88305; 88313; 88329; 88346; 88348; 88350; 90471; 90686; 93306; 93798; G0008; J1650; J1940; J2250; J2930; J3010; J7050; J7517; Q0162

== ENCOUNTER 2019-05-29 15:46 | Emergency (ER) | payer OTHER ==
[2019-05-29] MEDS ORDERED: predniSONE 20 MG TAB ONE (18:06)
== END 2019-05-29 18:00 | disposition home or self-care (01) ==
LOC: ERS 15:46
DX: M32.9 Systemic lupus erythematosus, unspecified (principal); Z79.899 Other long term (current) drug therapy
CPT/HCPCS: 99283; J7512